=== PATIENT | male | born 1965 | race Caucasian/White ===

== ENCOUNTER 2017-02-03 13:38 | Emergency (ER) | payer OTHER ==
[~2017-02-03] VITALS: Ht 182.9 cm; Wt 96.0 kg
[~2017-02-03 13:38] MED LIST: ASPIR 8181 M1 PO; LORTAB 5-500 T1 EAC1 PO; METAMUCIL MULT425 GM PO; NOHOMEMEDS; PRILOSEC40 MG PO; Protonix PO; REGLAN10 MG PO
[2017-02-03 14:34] LABS: HEMATOCRIT 47.8 % (38.0-50.0); MCH 31.1 PG (29.0-34.0); MCHC 34.5 G/DL (30.0-36.0); MCV 90.2 FL (86-99); MEAN PLAT.VOLUME 9.3 uM^3 (9.0-12.4); PLATELET COUNT 169 K/uL (156-360); WHITE BLOOD COUNT 7.7 K/uL (4.1-10.2)
[2017-02-03 14:46] LABS: CHLORIDE 103 mEq/L (99-109); POTASSIUM 4.1 mEq/L (3.7-5.4); SODIUM 140 mEq/L (136-147)
[2017-02-03 14:48] LABS: GLUCOSE 94 mg/dL (70-99)
[2017-02-03 14:49] LABS: ANION GAP 9 MEQ/L (2-14)
[2017-02-03 14:50] LABS: TOTAL BILIRUBIN 1.2 mg/dL (0.0-1.0)
[2017-02-03 14:52] LABS: ALKALINE PHOSPHATASE 81 IU/L (3-129); GFR ESTIMATE (CALCULATED) > 59 mL/min/
[2017-02-03 14:53] LABS: UREA NITROGEN (BUN) 18 mg/dL (9-23)
[2017-02-03 15:58] LABS: ADD MIUA? YES; BILIRUBIN NEGATIVE; BLOOD SMALL; COLOR AMBER ((YELLOW)); GLUCOSE (STRIP) NEGATIVE; KETONES 5; LEUKOCYTES NEGATIVE; NITRITE NEGATIVE; PROTEIN (STRIP) 30; SPECIFIC GRAVITY 1.033 (1.000-1.030); UROBILINOGEN 0.2 MG/DL (0.2-1.0)
[2017-02-03 16:06] LABS: BACTERIA RARE /HPF; EPITHELIAL CELLS NONE SEEN /HPF; MUCUS 4+ /LPF; RED BLOOD CELLS 0-5 /HPF (0-5); UCUL ADDED? NO; WHITE BLOOD CELLS 0-5 /HPF (0-5)
[2017-02-03] MEDS ORDERED: CIPRO500 MG PO (17:38)
[2017-02-03] MEDS ORDERED: FLAGYL500 MG PO (17:38)
[2017-02-03 18:02] VITALS: BP 128/73
== END 2017-02-03 18:04 | disposition home or self-care (01) ==
LOC: EME 13:38
DX: K52.9 Noninfective gastroenteritis and colitis, unspecified (principal); Z79.82 Long term (current) use of aspirin
CPT/HCPCS: 74177; 80053; 81003; 85027; 99281; 99285; J7040